=== PATIENT | female | born 1990 | race Caucasian/White ===

== ENCOUNTER 2024-07-23 07:49 | Outpatient (AMB) | payer OTHER, SELFPAY ==
--- NOTE | 2024-07-23 08:15 | MHC.PC.OV ---
Vital Signs 07/23/24 08:17 Height 5 ft 3.39 in Weight 121 lb 4 oz BMI 21.2 BP 110/68 Blood Pressure Location Lt brachial Position Sitting Pulse 85 Pulse Source Pulse Oximeter Temp 97 F Temp Source Temporal Artery Scan Pulse Oximetry (%) 98 Oxygen Delivery Method Room Air Intake Visit Reasons: Visit for her medication Intake Note: Patient is a new patient here to establish care for Migraine, Thyroid disease, Liver issues, Seasonal Allergies. Transferring care from Dr Bonnie Pearson ([facility]). Medical records have been requested and have not received. Development Disability Specialist Required: No Scrap Bunch Maker: Not Required per policy Accompanied by: Self / Same As Patient Allergies No Known Allergies Allergy (Verified 07/23/24 08:31) Medication List - Last Reconciled 07/23/24 by Maryam Bynum PA-C atogepant (Qulipta) 60 mg PO DAILY fluticasone propionate 50 mcg/actuation 2 sprays intranasal DAILY thiamine HCl (vitamin B1) 200 mg PO DAILY ubrogepant (Ubrelvy) 100 mg PO DAILY PRN Tobacco use date assessed: 07/23/24 Dental Screening Dental Screen Date: 07/23/24 Did you have a dental visit in the last 12 months?: Yes Did you have a dental problem in the last 6 months where you did not have access to dental care?: No Was dental information given to patient?: Patient has dentist HPI Visit for her medication HPI Details 34-year-old female coming to the office for the 1st time. She presents with a persistent breast lump, initially noticed in early this year following a pimple-like lesion resolution. The lump is non-painful, with no associated nipple discharge or skin rash. She has chronic migraines and reports needing prescription management, noting problems obtaining Ubrelvy due to issues with insurance and dosage prescriptions. 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 Recent steps to manage hepatic steatosis include starting thiamine, although follow-up diagnostics are pending. The patient addresses past mental health challenges, with anxiety being actively managed through therapy, though not depressive episodes as confirmed by a negative screening today. Planning is underway to address a lipoma surgically, with uncertainty due to recent insurance coverage issues. Additionally, acne and large pore problems possibly linked to prior control cessation are a concern, with a potential dermatology referral under consideration. 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 1. Little interest or pleasure in doing things: not at all 2. Feeling down, depressed, or hopeless: not at all 3. Trouble falling or staying asleep, or sleeping too much: not at all 4. Feeling tired or having little energy: not at all 5. Poor appetite or overeating: not at all 6. Feeling bad about yourself - or that you are a failure or have let yourself or your family down: not at all 7. Trouble concentrating on things, such as reading the newspaper or watching television: not at all 8. Moving or speaking so slowly that other people could have noticed. Or the opposite - being so fidgety or restless that you have been moving around a lot more than usual: not at all 9. Thoughts that you would be better off or of hurting yourself in some way: not at all Total score: 0 Depression Screening Interpretation: Negative Depression Screening Done: Yes Source: Developed by Drs. Juice Skaggs, Vanessa Campos, Fransico Fitzgerald and colleagues, with an educational coco from [employer]. Thrive Questionnaire Date Thrive assessed: 07/23/24 I am a: Patient What is your living situation today?: I have a steady place to live Within the past 12 months, did the food you bought not last and you didn't have the money to get more?: Never true Within the past 12 months, did you worry whether your food would run out before you got money to buy more?: Never true Do you have trouble paying for medicines?: No Do you have trouble getting transportation to medical appointments?: No Do you have trouble paying your heating and electricity bill?: No Do you have trouble taking care of your child, family member or friend?: No Do you have trouble with day-to-day activities such as bathing, preparing meals, shopping, managing finances, etc.?: No Are you currently unemployed and looking for a job?: No Are you interested in more education?: Yes Please select the resources that you would like help with: None Currently or been in a relationship where the following occur: I choose not to answer THRIVE Score: 0 AUDIT C Alcohol Use Questionnaire (AUDIT-C) 1. How often do you have a drink containing alcohol?: Never Total Score: 0 MARIO-7 AMB Questionnaire MARIO-7 Date MARIO - 7 assessed: 07/23/24 Feeling nervous, anxious, or on edge: 0 = Not at all Not being able to stop or control worryin = Not at all Worrying too much about different things: 0 = Not at all Trouble relaxin = Not at all Being so restless that it is hard to sit still: 0 = Not at all Becoming easily annoyed or irritable: 0 = Not at all Feeling afraid as if something awful might happen: 0 = Not at all Total MARIO-7 score (0-4 normal; 5-9 mild; 10-14 moderate; 15-21 severe): 0 Source: Developed by Drs. Juice Skaggs, Vanessa Campos, Fransico Fitzgerald and colleagues, with an educational coco from [employer]. MARIO-7 Assessment Billing MARIO-7 Assessment Tool: MARIO-7 Assessment 45475 Review of Systems Const Denies body aches, Denies chills, Denies fever(s), Reports headache(s) (hx of migraines) and Denies poor appetite Eyes Reports no additional complaints ENT Denies dizziness and Reports headache(s) (hx of migraines) Card Denies chest pain and Denies dyspnea Resp Denies cough and Denies dyspnea GI Denies nausea and Denies vomiting Reports no additional complaints Musc Reports no additional complaints and Denies abnormal gait Skin/Breast Reports system reviewed and no additional complaints, except as documented Neuro Denies abnormal gait, Denies dizziness and Reports headache(s) (hx of migraines) Psych Reports no additional complaints Physical exam (Primary Care) Depression Screening Interpretation: Negative Currently or been in a relationship where the following occur: I choose not to answer Const General: cooperative, healthy appearing, comfortable and no acute distress Orientation/consciousness: patient oriented x3 HENMT Head: Yes normocephalic Ears: hearing grossly normal bilaterally General nose exam: Normal external nose present Eyes General: appearance normal, both eyes and all related structures Conjunctivae: conjunctivae normal Neck Neck: Yes full ROM and Yes no lymphadenopathy Chest Chest/axillae images: 1. small, non-tender, soft, freely mobile mass Resp Effort & Inspection: normal respiratory effort Auscultation: clear to auscultation bilaterally, no crackles, no rales, no rhonchi and no wheezes Cardio Rate: regular rate Rhythm: regular rhythm Skin General skin exam: no rashes or lesions noted Neuro General: patient oriented x3 Gait exam (Neuro): Normal gait present Extrem General: Yes normal to inspection, Yes full ROM and No edema Shoulder/upper arm images: 1. Shoulder lipoma Psych Affect: normal affect Attitude: cooperative Insight: Good insight present (Psych) Judgement: Good judgement present (Psych) Coding Level of Care Code New Pt Level 4 (61538) Diagnoses Migraine G43.909 Hypothyroid E03.9 Fatty liver disease, nonalcoholic K76.0 Periodontal disease K05.6 Lipoma D17.9 Acne L70.9 Keratosis pilaris L85.8 Breast mass N63.0 Anxiety F41.9 Additional Codes MARIO-7 Assessment Billing - MARIO-7 Assessment Tool: MARIO-7 Assessment 89518 ([id number]) Assessment & Plan Assessment & Plan (1) Migraine: Code(s): G43.909 - Migraine, unspecified, not intractable, without status migrainosus Category: Medical Plan: Patient has a previously history of migraines currently using Qulipta daily and Ubrelvy as needed. Prescription sent for Ubrelvy. (2) Hypothyroid: Comment: was treated with iodine and was seeing improvement Code(s): E03.9 - Hypothyroidism, unspecified Category: Medical Plan: Patient reports her last PCP started her on iodine supplementation for possible Jina's thyroiditis. Blood work was ordered today for further evaluation. (3) Fatty liver disease, nonalcoholic: Code(s): K76.0 - Fatty (change of) liver, not elsewhere classified Category: Medical Plan: Patient previously diagnosed with fatty liver disease by her last PCP and was started on thiamine for management. Plan to obtain previous PCP records as well as updated blood work. (4) Periodontal disease: Code(s): K05.6 - Periodontal disease, unspecified Category: Medical Plan: Patient has a reported history of periodontal disease was started on vitamin-D by her dentist ordered for updated blood work (5) Lipoma: Comment: left shoulder prev MRI confirming Code(s): D17.9 - Benign lipomatous neoplasm, unspecified Category: Medical Plan: Patient has a lipoma of the left shoulder she has had MRIs in the past verifying the mass. She was being evaluated by [facility] however due to insurance had to switch to [facility] and has an evaluation tomorrow. (6) Acne: Code(s): L70.9 - Acne, unspecified Category: Medical Plan: Patient having open and closed comedones of the back recommend the use of Panoxyl body wash or other acne body wash. Referral was also placed to Dermatology at patient request (7) Keratosis pilaris: Code(s): L85.8 - Other specified epidermal thickening Category: Medical Plan: Patient previously diagnosed with keratosis pilaris by her last PCP. For this concern I recommend the use of 40% urea cream and referral was also placed to Dermatology (8) Breast mass: Code(s): N63.0 - Unspecified lump in unspecified breast Category: Medical Plan: Patient having very small breast mass in the 9 o'clock position on the border of the right areola. Plan to obtain ultrasound and mammogram for further evaluation. (9) Anxiety: Code(s): F41.9 - Anxiety disorder, unspecified Category: Medical Plan: Patient currently following with a counselor by weekly advised this beneficial. Declines medical management at this time Plan I prescribed Ubrelvy for migraine management, resolving the insurance issue. The breast lump, likely cystic, prompted orders for an ultrasound and mammogram. Jina's Thyroiditis will be monitored with upcoming thyroid function tests. Hepatic steatosis requires a metabolic panel. The patient will seek a surgical opinion on the shoulder lipoma, and a senior electrical estimator will evaluate the skin concerns. Vitamin support continues for periodontal health, with follow-up in three months to review blood work. This note was constructed using voice recognition software. While every effort has been made to ensure accuracy and foreclosure field inspector, still areas may have been included sometimes these areas may affect the content or meeting of the given symptoms. Total time spent caring for the patient today was 30 minutes. This includes time spent before the visit reviewing the chart, time spent during the visit, and time spent after the visit and documentation. Patient was informed and verbally consented to the use of an ambient scribe for clinic note documentation during this visit. Orders: Orders Complete Blood Count Auto Diff Today G43.909 - Migraine, unspecified, not intractable, without status migrainosus, Z00.00 - Encounter for general adult medical examination without abnormal findings Comprehensive Met. Panel Today K76.0 - Fatty (change of) liver, not elsewhere classified, Z00.00 - Encounter for general adult medical examination without abnormal findings Vitamin B12 and Folate Today Z00.00 - Encounter for general adult medical examination without abnormal findings Vitamin D 25-OH Total Today Z00.00 - Encounter for general adult medical examination without abnormal findings Lipid Panel Today Z13.220 - Encounter for screening for lipoid disorders TSH reflex Free T4 Today E03.9 - Hypothyroidism, unspecified, Z00.00 - Encounter for general adult medical examination without abnormal findings Free T4 (Free Thyroxine) Today E03.9 - Hypothyroidism, unspecified, Z00.00 - Encounter for general adult medical examination without abnormal findings US breast RT limited Today N63.0 - Unspecified lump in unspecified breast MM tomosynthesis diagnostic RT Today N63.0 - Unspecified lump in unspecified breast Referrals Dermatology Referral L70.9 - Acne, unspecified, L85.8 - Other specified epidermal thickening Medications: New ubrogepant (Ubrelvy) 100 mg PO DAILY PRN 10 tabs 0RF migraine headache
[2024-07-23 08:17] VITALS: BP 110/68; PULSE 85; TEMP 36.1; O2SAT 98; BMI 21.2
== END 2024-07-23 08:59 | disposition home or self-care (01) ==
LOC: HO.HMCH 07:50
DX: G43.909 Migraine, unspecified, not intractable, without status migrainosus (principal); E03.9 Hypothyroidism, unspecified; K76.0 Fatty (change of) liver, not elsewhere classified; K05.6 Periodontal disease, unspecified; D17.9 Benign lipomatous neoplasm, unspecified; L70.9 Acne, unspecified; L85.8 Other specified epidermal thickening; N63.0 Unspecified lump in unspecified breast; F41.9 Anxiety disorder, unspecified

== ENCOUNTER → 2024-07-23 07:49 | Outpatient (BNVA) | payer OTHER, SELFPAY | DX: G43.909 Migraine, unspecified, not intractable, without status migrainosus (principal); E03.9 Hypothyroidism, unspecified; K76.0 Fatty (change of) liver, not elsewhere classified; K05.6 Periodontal disease, unspecified; D17.22 Benign lipomatous neoplasm of skin and subcutaneous tissue of left arm; L70.9 Acne, unspecified; L85.8 Other specified epidermal thickening; N63.15 Unspecified lump in the right breast, overlapping quadrants; F41.9 Anxiety disorder, unspecified | CPT/HCPCS: 96127 ==

== ENCOUNTER 2024-09-04 07:48 | Outpatient (REF) | payer OTHER, SELFPAY ==
--- NOTE | ~2024-09-04 | MM_ITS ---
EXAMINATION: MM DIAGNOSTIC DIGITAL BREAST TOMOSYNTHESIS, BILATERAL Limited right breast ultrasound. CLINICAL INFORMATION: Right breast palpable lump which she does not feel today. She had felt that back in April of this year. COMPARISON: Mammography: Comparison is made with relevant prior exams. TECHNIQUE: Digital breast mammography with tomosynthesis is performed in both the craniocaudal and mediolateral oblique views along with computer-aided detection (CAD). FINDINGS: The breasts are heterogeneously dense, which may obscure small masses (ACR BI-RADS breast composition Category c). There are no significant masses, abnormal calcifications, or other abnormalities. Targeted color Doppler ultrasound scanning in the area of the previously felt palpable lump scanning from 7-11 o'clock demonstrates normal fibronodular breast tissue. There is no sonographic abnormal findings. Results are provided to the patient at time of visit by the technologist. MM/MM tomosynthesis diagnostic BI IMPRESSION: No mammographic or sonographic abnormal findings to account for the patient's palpable lump. Recommend clinical evaluation and follow-up. ASSESSMENT: BI-RADS BI-RADS 1 - Negative RECOMMENDATION: 1 year F/U This patient's information was entered into a reminder system with a target due date for their next mammogram. Electronically signed by: Nallely Kaplan DO 09/04/2024 09:57 AM EDT
--- OUTSIDE RECORDS SUMMARY | 2024-09-04 07:51 | XMS_ITS | Patient Health Record ---
Author Organization [facility] Address [address] [place] [address] Care Team Providers Care Impregnation Operator Name Role Phone Demond Rooney Primary Care Provider Ronnie Rosario Unavailable [phone] Medications Medication SIG (Take, Route, Frequency, Duration) Notes Start Date End Date Status Doxycycline Hyclate 50 MG 1capsules Oral ly Once a day for 03/05/2013 Active Clindamycin Phosphate 1 % 1 swab to affe cted area Externally Once in morning for 11/02/2013 Active Tretinoin 0.05 % 1 application a stephanie-sized amount to face in the evening Externally Once a day for 03/05/2013 Active Cyclafem Activ e Social History Tobacco Use: Social History Observation Description Date Details (start date - stop date) Never Smoker NA - NA Smoking Question Answer Notes Status nonsmoker Problems Problem Type SNOMED Code ICD Code Onset Dates Problem Status W/U Status Risk Notes Problem Acne (39125589) Other acne (706.1) Active confirmed Plan Of Treatment No Information Insurance Providers Payer Name Payer Address Payer Phone Subscriber Number Group Number Insured Name Patient Relationship to Insured Coverage Start Date Coverage End Date DO NOT USE BCRI BlUE CHIP-DO NOT USE USE #44 BCBS [place]ILLO [phone] [id number] Selam Winchester Child - Insured has Financial Responsibility [address] [address] [phone] [id number] Ayala Winchester Self - patient is the insured Medical (General) History Medical History History ICD Code acne
== END 2024-09-04 07:49 | disposition home or self-care (01) ==
LOC: HO.MAMMO 07:48
DX: N63.15 Unspecified lump in the right breast, overlapping quadrants (principal)
CPT/HCPCS: 76642; 77062; 77066

== ENCOUNTER → 2024-09-04 08:00 | Outpatient (BNV) | payer OTHER, SELFPAY | PROVIDERS: Visit Provider Internal Medicine | DX: N63.10 Unspecified lump in the right breast, unspecified quadrant (principal) | CPT/HCPCS: 76642; 77062; 77066 ==

== ENCOUNTER 2024-10-17 06:31 | Outpatient (REF) | payer OTHER, SELFPAY ==
--- OUTSIDE RECORDS SUMMARY | 2024-10-17 06:33 | XMS_ITS | Patient Health Record ---
Author Organization [facility] Address [address] [place] [id number] Care Team Providers Care American History Professor Name Role Phone zMigration, Provider Unavailable Unavailable Reason For Referral No Information Medications Medication SIG (Take, Route, Frequency, Duration) Notes Start Date End Date Status CLEOCIN T 1% TOPICAL GEL *Please review for potential replacement for e-prescription and drug interaction check* Active CLEOCIN T 1% TOPICAL GEL *Please review for potential replacement for e-prescription and drug interaction check* Active CLEOCIN T 1% TOPICAL GEL *Please review for potential replacement for e-prescription and drug interaction check* Active Tri-Sprintec 0.18/0.215/0.25 MG-35 MCG 1 tab(s) orally once a day for 30 days Active -NO OTC MEDICATIONS . . *Please revi ew for potential replacement for e-prescription and drug interaction check* 08/27/2012 Active Clotrimazole-Betamet hasone 1-0.05 % 1 cody applied topically 2 times a day Active Retin-A 0.025 % 1 cody applied topically once a day (at bedtime) Active Clindamycin Phosphate 1 % 1 cody applied topically 2 times a day for acne Active Immunizations Vaccine Route Administration Date Status Comme nts PPD - Skin test; tuberculosis ID Intradermal 09/16/2010 Administered Pt came for raeding on 09/18/2010 negitive Tdap (Adacel) purchased IM Intramuscular 11/28/2012 Administered Social History Tobacco use (structured) Question Answer Notes Tobacco Use: non-smoker Section Notes: 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 [address] [place] [address] [phone] 05/20/2024 Provider zMigration Plan Of Treatment No Information Insurance Providers Payer Name Payer Address Payer Phone Subscriber Number Group Number Insured Name Patient Relationship to Insured Coverage Start Date Coverage End Date [facility] [employer] [address] [address] [place] [address] [phone] [id number] Ayala Winchester Self - patient is the insured Medical (General) History Medical History History ICD Code No significant past medical history PAP-11/2013-neg. Surgical History Surgery Date(Month/Year) Teeth extractions
--- OUTSIDE RECORDS SUMMARY | 2024-10-17 06:33 | XMS_ITS | Patient Health Record ---
Author Organization [facility] Address [address] [place] [address] Care Team Providers Care Plastic Fabricator Name Role Phone Demond Rooney Primary Care Provider Ronnie Rosario Unavailable [phone] Medications Medication SIG (Take, Route, Frequency, Duration) [...] Problem Status W/U Status Risk Notes Problem Other acne (706.1) Active confirmed Plan Of Treatment No Information Insurance Providers Payer Name Payer Address Payer Phone Subscriber Number Group Number Insured Name Patient Relationship to Insured Coverage Start Date Coverage End Date DO NOT USE BCRI BlUE CHIP-DO NOT USE USE #44 [place] [id number] Selam Winchester Child - Insured has Financial Responsibility [address] [address] [phone] [id number] Ayala Winchester Self - patient is the insured Medical (General) History Medical History History ICD Code acne
[2024-10-17 10:27] LABS: MANUAL DIFF FLAG NO
[2024-10-17 10:34] LABS: Hematocrit 43.5 % (37.0-47.0); Hemoglobin 14.7 g/dl (12.0-16.0); Imm Gran Abs Auto 0.01 X10*3/uL (0.00-0.03); Imm Gran Pct Auto 0.1 % (0.0-0.4); Lymphocytes Absolute Auto 2.7 X10*3/uL (1.2-4.9); Mean Corpuscular HGB Conc 33.8 g/dl (31.0-35.0); Mean Corpuscular Hemoglobin 29.9 pg (27.0-33.0); Mean Corpuscular Volume 88.4 fL (80.0-98.0); NRBC Abs Auto 0.000 X10*3/uL (0.0-0.012); NRBC Pct Auto 0.0 /100WBC (0.0-0.2); Platelet Count 271 X10*3/uL (160-400); Red Blood Count 4.92 X10*6/uL (4.20-5.50); White Blood Count 7.2 X10*3/uL (4.8-10.8)
[2024-10-17 10:53] LABS: Alanine Aminotransferase 20 U/L (0-31); Albumin Level 4.6 g/dL (3.5-5.0); Alkaline Phosphatase 73 U/L (39-117); Anion Gap 11 (12-20); Aspartate Amino Transferase 36 U/L (5-31); Blood Urea Nitrogen 27 mg/dL (9-16); Calcium 9.1 mg/dL (8.4-10.2); Carbon Dioxide 27 mmol/L (22-29); Chloride 105 mmol/L (96-108); Cholesterol 169 mg/dL (<200); Estimated Glomerular Filt Rate > 60; HDL Cholesterol 67 mg/dL (>40); Potassium 3.6 mmol/L (3.3-5.1); Sodium 139 mmol/L (135-145); Total Protein 7.4 g/dL (6.5-8.0); Triglycerides 45 mg/dL (<150)
[2024-10-17 11:21] LABS: Free T4 (Free Thyroxine) 0.90 ng/dL (0.71-1.85)
[2024-10-17 11:26] LABS: Folate 12.7 ng/mL (> or = 4.0); Vitamin B12 813 pg/mL (200-900)
== END 2024-10-17 06:32 | disposition home or self-care (01) ==
LOC: HO.HMGCLDS 06:31
DX: Z00.00 Encounter for general adult medical examination without abnormal findings (principal); Z13.220 Encounter for screening for lipoid disorders; G43.909 Migraine, unspecified, not intractable, without status migrainosus; E03.9 Hypothyroidism, unspecified; K76.0 Fatty (change of) liver, not elsewhere classified
CPT/HCPCS: 36415; 80053; 80061; 82306; 82607; 82746; 84439; 84443; 85025

== ENCOUNTER 2024-10-23 15:20 | Outpatient (AMB) | payer OTHER, SELFPAY ==
--- NOTE | 2024-10-23 15:23 | MHC.PC.OV ---
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: No Accompanied by: Self / Same As Patient Allergies No Known Allergies Allergy (Verified 10/23/24 15:48) Medication List - Last Reconciled 10/23/24 by Maryam Bynum PA-C atogepant (Qulipta) 60 mg PO DAILY fluticasone propionate 50 mcg/actuation 2 sprays intranasal DAILY thiamine HCl (vitamin B1) 200 mg PO DAILY ubrogepant (Ubrelvy) 100 mg PO DAILY PRN Tobacco use date assessed: 10/23/24 Dental Screening Dental Screen Date: 10/23/24 Did you have a dental visit in the last 12 months?: Yes Did you have a dental problem in the last 6 months where you did not have access to dental care?: No Was dental information given to patient?: Patient has dentist HPI pe HPI Details 34-year-old female with past medical history of migraine, hypothyroid, fatty liver disease, and anxiety last seen 07/2024 coming in for annual exam. In review of the notes, patient had a palpable right breast mass no sonographic or mammographic evidence of a lump advised to follow up in 1 year. Presenting with migraine management issues. The patient has been experiencing migraines, with the most recent severe episode occurring within the last month. She reports that migraines are more frequent around her menstrual period. She has been using Qulipta and Ubrelvy, but insurance issues have led to inconsistent medication access. Dermatitis diagnosed by a corporate travel expert, the patient is using ketoconazole shampoo as a topical treatment. The condition appears to fluctuate throughout the day, potentially worsening with sweat or exercise. Previously diagnosed, the patient is managing the condition with lifestyle modifications. Recent blood work showed one liver enzyme slightly elevated, but otherwise normal liver function. 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 1. Little interest or pleasure in doing things: not at all 2. Feeling down, depressed, or hopeless: not at all 3. Trouble falling or staying asleep, or sleeping too much: not at all 4. Feeling tired or having little energy: not at all 5. Poor appetite or overeating: not at all 6. Feeling bad about yourself - or that you are a failure or have let yourself or your family down: not at all 7. Trouble concentrating on things, such as reading the newspaper or watching television: not at all 8. Moving or speaking so slowly that other people could have noticed. Or the opposite - being so fidgety or restless that you have been moving around a lot more than usual: not at all 9. Thoughts that you would be better off or of hurting yourself in some way: not at all Total score: 0 Depression Screening Interpretation: Negative Depression Screening Done: Yes Source: Developed by Drs. Juice Skaggs, Vanessa Campos, Fransico Fitzgerald and colleagues, with an educational coco from [employer]. Thrive Questionnaire Date Thrive assessed: 10/23/24 I am a: Patient What is your living situation today?: I have a steady place to live Within the past 12 months, did the food you bought not last and you didn't have the money to get more?: Never true Within the past 12 months, did you worry whether your food would run out before you got money to buy more?: Never true Do you have trouble paying for medicines?: No Do you have trouble getting transportation to medical appointments?: No Do you have trouble paying your heating and electricity bill?: No Do you have trouble taking care of your child, family member or friend?: No Do you have trouble with day-to-day activities such as bathing, preparing meals, shopping, managing finances, etc.?: No Are you currently unemployed and looking for a job?: No Are you interested in more education?: Yes Please select the resources that you would like help with: None Currently or been in a relationship where the following occur: I choose not to answer THRIVE Score: 0 AUDIT C Alcohol Use Questionnaire (AUDIT-C) 3. How often do you have six or more drinks on one occasion?: Never Total Score: 0 MARIO-7 AMB Questionnaire MARIO-7 Date MARIO - 7 assessed: 10/23/24 Feeling nervous, anxious, or on edge: 0 = Not at all Not being able to stop or control worryin = Not at all Worrying too much about different things: 0 = Not at all Trouble relaxin = Not at all Being so restless that it is hard to sit still: 0 = Not at all Becoming easily annoyed or irritable: 0 = Not at all Feeling afraid as if something awful might happen: 0 = Not at all Total MARIO-7 score (0-4 normal; 5-9 mild; 10-14 moderate; 15-21 severe): 0 Source: Developed by Drs. Juice Skaggs, Vanessa Campos, Fransico Fitzgerald and colleagues, with an educational coco from [employer]. MARIO-7 Assessment Billing MARIO-7 Assessment Tool: MARIO-7 Assessment 35323 Review of Systems Const Denies body aches, Denies fatigue, Denies fever(s), Denies frequent falls, Reports headache(s) (migraine without medication ) and Denies weakness Eyes Reports no additional complaints and Denies change in vision ENT Denies dysphagia, Denies dizziness, Denies facial pain, Reports headache(s) (migraine without medication ), Denies nasal congestion and Denies odynophagia Card Denies chest pain, Denies syncope, Denies irregular heart rhythm, Denies leg edema, Denies lightheadedness and Denies dyspnea Resp Denies cough and Denies dyspnea GI Denies abdominal pain, Reports constipation, Denies dysphagia, Denies dyspepsia, Denies diarrhea, Reports nausea (w/ migraine), Denies odynophagia and Denies vomiting Denies urinary frequency, Denies dysuria, Denies urinary hesitancy and Denies urinary urgency Musc Denies back pain and Denies myalgias Skin/Breast Reports system reviewed and no additional complaints, except as documented Neuro Denies dizziness, Denies syncope, Denies frequent falls, Reports headache(s) (migraine without medication ) and Denies weakness Psych Reports no additional complaints Endo Denies fatigue Physical exam (Primary Care) Vital Signs: Last Vital Signs Pulse 77 10/23/24 15:25 BP 104/72 10/23/24 15:25 Pulse Ox 100 10/23/24 15:25 Oxygen Delivery Method Room Air 10/23/24 15:25 BMI result Body Mass Index 20.9 Tobacco/Smoking Status: Tobacco use Status Tobacco use date assessed 10/23/24 10/23/24 15:27 Patient Tobacco Use Status Never used Tobacco 10/23/24 15:27 e-Cigarette/Vaping Use Never Used 10/23/24 15:27 PHQ-9: PHQ-9 Score PHQ-9: Total score 0 10/23/24 15:38 Depression Screening Interpretation: Negative Thrive Assessment: Date of Thrive Assessment Date Thrive assessed 10/23/24 10/23/24 15:27 Currently or been in a relationship where the following occur: I choose not to answer Const General: cooperative, healthy appearing, comfortable and no acute distress Orientation/consciousness: patient oriented x3 HENMT Head: Yes normocephalic Ears: hearing grossly normal bilaterally, external ears normal, TM's normal bilaterally and EAC's normal General nose exam: Normal external nose present Face and sinus: Yes normal facial exam and Yes sinuses nontender Mouth: Normal oral and palatal mucosa present and tongue normal Throat: Yes posterior oropharynx normal Eyes General: appearance normal, both eyes and all related structures Conjunctivae: conjunctivae normal Pupils: Equal, round and reactive pupils present EOM: EOMs intact bilaterally and No Nystagmus present Neck Neck: Yes normal visual inspection, Yes full ROM and Yes no lymphadenopathy Chest Chest palpation & inspection: normal inspection of the chest Resp Effort & Inspection: normal respiratory effort Auscultation: clear to auscultation bilaterally, no crackles, no rales, no rhonchi, no wheezes and breath sounds present Cardio Rate: regular rate Rhythm: regular rhythm Peripheral pulses: radial pulses present and dorsalis pedis present GI Inspection: Yes normal to inspection and No Abdominal wall edema Palpation (GI): Soft to palpation, not firm and nontender Auscultation: normal bowel sounds Rectal Exam - Female: deferred General: Yes no CVA tenderness Back/Spine/Pelvis Back: no CVA tenderness Skin General skin exam: no rashes or lesions noted Neuro General: patient oriented x3 Cranial nerves: Yes Equal, round and reactive pupils present, Yes Midline tongue present, Yes Ability to bilaterally elevate shoulders present and No Nystagmus present Gait exam (Neuro): Normal gait present Extrem General: Yes normal to inspection, Yes full ROM, No no pedal edema and No edema Psych Speech and movement: Normal speech and movement present Affect: normal affect Insight: Good insight present (Psych) Judgement: Good judgement present (Psych) Coding Level of Care Code Est Pt Prev Care 18-39y(31919) Diagnoses Annual physical exam Z00.00 Migraine G43.909 Hypothyroid E03.9 Fatty liver disease, nonalcoholic K76.0 Lipoma D17.9 Breast mass N63.0 Anxiety F41.9 Allergic rhinitis J30.9 Additional Codes MARIO-7 Assessment Billing - MARIO-7 Assessment Tool: MARIO-7 Assessment 63745 ([id number]) Assessment & Plan Assessment & Plan (1) Annual physical exam: Code(s): Z00.00 - Encounter for general adult medical examination without abnormal findings Category: Medical Plan: Patient is up-to-date on all recommended routine screenings and vaccinations for her age. Blood work is up-to-date and has been reviewed with the patient today. Healthy diet and regular exercise is encouraged. (2) Migraine: Code(s): G43.909 - Migraine, unspecified, not intractable, without status migrainosus Category: Medical Plan: Patient has a previously history of migraines currently using Qulipta daily and Ubrelvy as needed. Prescription sent for Ubrelvy. Insurance would not cover these medications and referral was placed to Neurology. She has an appointment in December. 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 Last thyroid levels normal (4) Fatty liver disease, nonalcoholic: Code(s): K76.0 - Fatty (change of) liver, not elsewhere classified Category: Medical Plan: Patient previously diagnosed with fatty liver disease by her last PCP and was started on thiamine for management. Last LFTs very mildly elevated continue to monitor (5) Lipoma: Comment: left shoulder prev MRI confirming Code(s): D17.9 - Benign lipomatous neoplasm, unspecified Category: Medical Plan: Recently removed and doing well post-op. (6) Breast mass: Code(s): N63.0 - Unspecified lump in unspecified breast Category: Medical Plan: [facility] and sonography negative repeat in 1 year. (7) Anxiety: Code(s): F41.9 - Anxiety disorder, unspecified Category: Medical Plan: Patient currently following with a counselor by weekly advised this beneficial. Declines medical management at this time (8) Allergic rhinitis: Code(s): J30.9 - Allergic rhinitis, unspecified Category: Medical Plan: Referral was placed to ENT at patient request today. continue with oral allergy medication. Plan The plan for managing the patient's migraines includes submitting new prescriptions for Qulipta and Ubrelvy, with a focus on obtaining insurance approval. If issues persist, a referral to neurology is recommended for specialized care. The patient is advised to monitor migraine frequency and severity, particularly around her menstrual cycle, and to report any changes. Management of fatty liver disease involves continued lifestyle modifications, including diet and exercise. Regular monitoring of liver function tests is advised to track any changes. The patient is informed that no specific medication is required at this time. Anxiety management continues with counseling sessions. The patient is encouraged to discuss any concerns or changes in symptoms with her counselor. The patient is instructed to discontinue Flonase due to suspected allergic reactions and to monitor for any residual symptoms. Alternative allergy management strategies may be considered if needed. This note was constructed using voice recognition software. While every effort has been made to ensure accuracy and video camera operator, still areas may have been included sometimes these areas may affect the content or meeting of the given symptoms. Total time spent caring for the patient today was 30 minutes. This includes time spent before the visit reviewing the chart, time spent during the visit, and time spent after the visit and documentation. Patient was informed and verbally consented to the use of an ambient scribe for clinic note documentation during this visit. Orders: Referrals Ear/Nose/Throat Referral J30.9 - Allergic rhinitis, unspecified, Z91.09 - Other allergy status, other than to drugs and biological substances CARDBOARD INSERTER Referral Z12.4 - Encounter for screening for malignant neoplasm of cervix Medications: New atogepant (Qulipta) 60 mg PO DAILY 90 tabs 0RF ubrogepant (Ubrelvy) 100 mg PO DAILY PRN 30 tabs 0RF migraine Discontinued ubrogepant (Ubrelvy) Discontinued Reason: Patient no longer taking 100 mg PO DAILY PRN 10 tabs 0RF migraine headache atogepant (Qulipta) Discontinued Reason: Patient no longer taking 60 mg PO DAILY 30 tabs 0RF
[2024-10-23 15:25] VITALS: BP 104/72; PULSE 77; O2SAT 100; BMI 20.9
--- OUTSIDE RECORDS SUMMARY | 2024-10-23 16:15 | XMS_ITS | Clinical Summary ---
Author Organization [facility] Address [address] [facility] [address] [place] [phone] Phone Care Team Providers Care Checker Dump Grounds Name Role Phone Bonnie Pearson NP Primary Care Provider + Allergies No known active allergies Medications QULIPTA 60 mg tablet 01/25/2024 Active cetirizine (ZYRTEC) 10 MG tablet 01/20/2024 Active thiamine (VITAMIN B-1) 100 MG tablet 03/04/2024 Active UBRELVY 100 mg tablet 02/08/2024 Active selenium 200 mcg capsule Take 200 mcg by mouth daily. Active cholecalciferol (VITAMIN D3) 25 MCG (1,000 unit) tablet Take 1,000 Units by mouth daily. Active therapeutic multivitamin tablet Take 1 tablet by mouth daily. Active magnesium 250 mg Tab Take by mouth. Active iodine 150 mcg Tab Take by mouth. Active Medication-Free Text Skin aid Active Bacillus coagulans-inulin 1 billion-250 cell-mg Cap Take 250 mg by mouth daily. Active Active Problems Problem Noted Date Diagnosed Date Anxiety 04/10/2024 Depression 04/10/2024 Migraines 04/10/2024 Social History Tobacco Use Types Packs/Day Years Used Date Smoking Tobacco: Never Smokeless Tobacco: Never Tobacco Cessation:Counseling Given: Not Answered Education Answer Date Recorded Are you interested in more education? Not on jose e 02/29/2024 Are you concerned about learning? Not on file 02/29/2024 No 02/29/2024 No 02/29/2024 Digital Access Answer Date Recorded No 02/29/2024 No 02/29/2024 Reliable internet access at home? Not on file 02/29/2024 Device with a working camera? Not on file Comments Unknown Sex and Gender Information Value Date Recorded Sex Assigned at Not on file Legal Sex Female 11:20 AM EDT Gender Identity Not on file Sexual Orientation Not on file Last Filed Vital Signs Vital Sign Reading Time Taken Comments Blood Pressure 110/66 04/10/2024 10:14 AM EST Pulse 80 04/10/2024 10:14 AM EST Temperature 36.6 C (97.8 F) 04/10/2024 10:14 AM EST Respiratory Rate - - Oxygen Saturation 98% 04/10/2024 10:14 AM EST Inhaled Oxygen Concentration - - Weight 55 kg (121 lb 3.2 oz) 04/10/2024 10:14 AM EST Height - - Body Mass Index - - Plan of Treatment Health Maintenance Due Date Last Done Comments Adult Td,Tdap Booster 1988 DEPRESSION SCREENING 2000 HEPATITIS C SCREENING 2006 HIV ONE-TIME SCREENING (18-6 5 YEARS) 2006 PAP SMEAR 2009 COVID-19 VACCINE (2023-2 5 season) 2023 SMOKING STATUS SCREENING (On ce After 26 Yrs) Completed 04/10/2024 HEPATITIS A VACCINES Aged Out No long er eligible based on patient's age to complete this topic HIB VACCINES Aged Out No longer eligi ble based on patient's age to complete this topic MENINGOCOCCAL VACCINES (ACWY) Aged Out No longer eligible based on patient's age to complete this topic MENINGOCOCCAL VACCINES (B) Aged Out N o longer eligible based on patient's age to complete this topic PNEUMOCOCCAL VACCINES (0-49 years) Aged Out No longer eligible based on patient's age to complete this topic Medical Devices Not on file Insurance [address] [place] [id number] [facility] [address] [place] [address] [facility] [address] [place] [address] [facility] [address] [place] [address] [facility] [address] [facility] [place] [place] [facility] [address] [place] [id number] [place] [address] Care Teams Checker Dump Grounds Relationship Specialty Start Date End Date Bonnie Pearson NP [address] [place] [id number] PCP - General Nurse Practitioner 04/10/24 Additional Source Comments The information contained in this document represents components of the legal health record. It is not the complete legal health record.[facility]
--- OUTSIDE RECORDS SUMMARY | 2024-10-23 16:15 | XMS_ITS ---
Author Name [facility] Organization Unknown Care Team Organization Name Specialty Phone Email Start Date End Da te [facility] Indira Robles Primary Care 02/09/2022 4
--- OUTSIDE RECORDS SUMMARY | 2024-10-23 16:15 | XMS_ITS | Patient Health Record ---
Author Organization [facility] 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 [address] [place] [phone] 05/20/2024 Provider zMigration Plan Of Treatment No Information Insurance Providers Payer Name Payer Address Payer Phone Subscriber Number Group Number Insured Name Patient Relationship to Insured Coverage Start Date Coverage End Date [facility] [employer] [address] [address] [place] [address] [phone] [id number] Ayala Winchester Self - patient is the insured Medical (General) History Medical History History ICD Code No significant past medical history PAP-11/2013-neg. Surgical History Surgery Date(Month/Year) Teeth extractions
--- OUTSIDE RECORDS SUMMARY | 2024-10-23 16:15 | XMS_ITS | Patient Health Record ---
Author Organization [facility] Address [address] [facility] [address] [place] [address] Care Team Providers Care At Risk Specialist Name Role Phone Demond Rooney Primary Care Provider Ronnie Rosario Unavailable [phone] Medications Medication SIG (Take, Route, Frequency, Duration) [...] BlUE CHIP-DO NOT USE USE #44 [place] BRITT [id number] Selam Winchester Child - Insured has Financial Responsibility [address] [address] [phone] [id number] Ayala Winchester Self - patient is the insured Medical (General) History Medical History History ICD Code acne
== END 2024-10-23 16:10 | disposition home or self-care (01) ==
LOC: HO.HMCH 15:21
DX: Z00.00 Encounter for general adult medical examination without abnormal findings (principal); G43.909 Migraine, unspecified, not intractable, without status migrainosus; E03.9 Hypothyroidism, unspecified; K76.0 Fatty (change of) liver, not elsewhere classified; D17.9 Benign lipomatous neoplasm, unspecified; N63.0 Unspecified lump in unspecified breast; F41.9 Anxiety disorder, unspecified; J30.9 Allergic rhinitis, unspecified

== ENCOUNTER → 2024-10-23 15:20 | Outpatient (BNVA) | payer OTHER, SELFPAY | DX: Z00.00 Encounter for general adult medical examination without abnormal findings (principal); G43.909 Migraine, unspecified, not intractable, without status migrainosus; E03.9 Hypothyroidism, unspecified; F41.9 Anxiety disorder, unspecified; K76.0 Fatty (change of) liver, not elsewhere classified; D17.9 Benign lipomatous neoplasm, unspecified; N63.0 Unspecified lump in unspecified breast; J30.9 Allergic rhinitis, unspecified | CPT/HCPCS: 96127 ==

== ENCOUNTER 2024-11-14 14:48 | Outpatient (AMB) | payer OTHER, SELFPAY ==
[2024-11-14 14:54] VITALS: BP 100/60; PULSE 79; O2SAT 98; BMI 21.1
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
--- OUTSIDE RECORDS SUMMARY | 2024-11-14 14:54 | XMS_ITS | Patient Health Record ---
Author Organization [facility] Address [address] [facility] [address] [place] [address] Care Team Providers Care Buttonhole Maker Name Role Phone Demond Rooney Primary Care Provider Ronnie Rosario Unavailable [phone] Medications Medication SIG (Take, Route, Frequency, Duration) Notes Start Date End Date Status Doxycycline Hyclate 50 MG 1capsules Oral ly Once a day; Duration: 03/05/2013 Active Clindamycin Phosphate 1 % 1 swab to affe cted area Externally Once in morning; Duration: 11/02/2013 Active Tretinoin 0.05 % 1 application a stephanie-sized amount to face in the evening Externally Once a day; Duration: 03/05/2013 Active Cyclafem Activ e Social History [...] NOT USE USE #44 BCBS [place]ANE TRUJILLO [phone] [id number] Selam Winchester Child - Insured has Financial Responsibility [address] [address] [phone] [id number] Ayala Winchester Self - patient is the insured Medical (General) History Medical History History ICD Code acne
--- OUTSIDE RECORDS SUMMARY | 2024-11-14 14:54 | XMS_ITS | Clinical Summary ---
Author Organization [facility] Address [address] [employer] [facility] [address] [place] [phone] Phone Care Team Providers Care Clinical Assistant Name Role Phone Bonnie Pearson NP Primary [...] Medical Devices Not on file Insurance [address] [place] [id number] [facility] [address] [place] [address] [facility] [address] [place] [address] [facility] [address] [place] [address] [facility] [address] [facility] [place] [place] [facility] [address] [place] [id number] [place] [address] Care Teams Clinical Assistant Relationship Specialty Start Date End Date Bonnie Pearson NP [address] [place] [phone] PCP - General Nurse Practitioner 04/10/24 Additional Source Comments The information contained in this document represents components of the legal health record. It is not the complete legal health record.[facility]
--- OUTSIDE RECORDS SUMMARY | 2024-11-14 14:54 | XMS_ITS | Patient Health Record ---
Author Organization [facility] Address [address] [place] [address] [phone] Care Team Providers Care Utility Sales And Service Manager Name Role Phone zMigration, Provider Unavailable Unavailable [...] MG-35 MCG 1 tab(s) orally once a day; Duration: 30 days Active -NO OTC MEDICATIONS . 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 [address] [place] [address] [phone] 05/20/2024 Provider zMigration Plan Of Treatment No Information Insurance Providers Payer Name Payer Address Payer Phone Subscriber Number Group Number Insured Name Patient Relationship to Insured Coverage Start Date Coverage End Date [facility] Carlo/Marla itJenniferre [address] [address] [place] [address] [id number] Ayala Winchester Self - patient is the insured Medical (General) History Medical History History ICD Code No significant past medical history PAP-11/2013-neg. Surgical History Surgery Date(Month/Year) Teeth extractions
== END 2024-11-23 17:48 | disposition home or self-care (01) ==
LOC: HO.HSMS 14:48
PROVIDERS: Visit Provider Nurse Practitioner Family
DX: G43.009 Migraine without aura, not intractable, without status migrainosus (principal); R25.9 Unspecified abnormal involuntary movements
CPT/HCPCS: 99205

== ENCOUNTER 2024-12-11 09:41 | Outpatient (REF) | payer OTHER, SELFPAY ==
[2024-12-11 14:37] LABS: Chlamydia pneumoniae PCR Not Detected (Not Detect.); Coronavirus 229E PCR Not Detected (Not Detect.); Coronavirus HKU1 PCR Not Detected (Not Detect.); Coronavirus NL63 PCR Not Detected (Not Detect.); Coronavirus OC43 PCR Not Detected (Not Detect.); RSV PCR Not Detected (Not Detect.); Rhino/Enterovirus PCR Not Detected (Not Detect.)
[2024-12-11 14:44] LABS: Influenza A H1 PCR Not Detected (Not Detect.); Influenza A H1-2009 PCR Not Detected (Not Detect.); Influenza A H3 PCR Not Detected (Not Detect.); SARS-CoV-2 PCR Not Detected (Not Detect.)
== END 2024-12-11 09:42 | disposition home or self-care (01) ==
LOC: HO.LNP 09:41
PROVIDERS: Visit Provider Physician Assistant Medical
DX: R05.1 Acute cough (principal)
CPT/HCPCS: 87633

== ENCOUNTER 2024-12-11 09:41 | Outpatient (AMB) | payer OTHER, SELFPAY ==
[2024-12-11 09:51] VITALS: BP 106/72; PULSE 85; TEMP 36.7; O2SAT 98; BMI 21.5
--- NOTE | 2024-12-11 09:51 | MHC.OFFWIV ---
Intake Vital Signs 12/11/24 09:51 Height 5 ft 3 in Weight 121 lb 4 oz BMI 21.5 BP 106/72 Blood Pressure Location Lt brachial Position Sitting Pulse 85 Pulse Source Pulse Oximeter Temp 98.0 F Temp Source Oral Pulse Oximetry (%) 98 Oxygen Delivery Method Room Air Intake Visit Reasons: ep cough for two weeks Intake Note: Pt presents to the office today for c/o a cough and chest congestion x2 weeks. Pt has been taking mucinex and benzonatate with no relief. Patient Tobacco Use Status: Never used Tobacco Allergies No Known Allergies Allergy (Verified 12/11/24 09:55) HPI HPI Comments History of Present Illness Details History - The patient is a 34-year-old female presenting with a persistent cough. - The cough has been ongoing for almost two weeks and has not improved with [id number] medications. - The patient reports the cough is mostly dry, occasionally sounding wet, with no productive sputum. - There is no history of fever, but the patient experiences fatigue and occasional postnasal drip. 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 - The patient has not experienced significant congestion or runny nose, and there is no difficulty breathing through the nose. 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 - She denies congestion, runny nose, sore throat, CP, SOB, abd pain, n/v/d. - She does not smoke. Physical Exam General: Cooperative, healthy appearing, comfortable and no acute distress Orientation/consciousness: Patient oriented x3 Limitations: No limitations Head: Normal to inspection Ears: Hearing grossly normal bilaterally, external ears normal and TM's normal bilaterally Nose: Normal external nose present, normal nares present, and no nasal discharge present. Face and sinus: Sinuses nontender to palpation. Mouth: Normal oral and palatal mucosa present and moist mucous membranes noted. Throat: Tonsils normal. Uvula is midline. Posterior oropharynx with erythema and no exudates. Eyes: Appearance normal, both eyes and all related structures Neck: Normal visual inspection, full ROM. No lymphadenopathy noted. Respiratory: Clear to auscultation bilaterally. Normal respiratory effort, able to speak in complete sentences. No respiratory distress, not tachypneic, no tripod positioning and no use of accessory muscles. Cardiovascular: Regular rate and rhythm. 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 Cognitive needs: No Hearing needs: No Vision needs: Yes (Glasses/Contacts) Review of Systems Const All systems reviewed & are unremarkable except as noted in HPI and below Physical Exam Vital Signs: Last Vital Signs Temp 98.0 F 12/11/24 09:51 Pulse 85 12/11/24 09:51 BP 106/72 12/11/24 09:51 Pulse Ox 98 12/11/24 09:51 Oxygen Delivery Method Room Air 12/11/24 09:51 BMI result Body Mass Index 21.5 Assessment & Plan Assessment & Plan (1) Cough: Code(s): R05.9 - Cough, unspecified Qualifiers: Cough type: acute Qualified Code(s): R05.1 - Acute cough Plan Most likely URI vs covid vs flu vs RSV vs bronchitis plan - The patient will be tested for COVID-19 to rule out viral infection. - Prescriptions include an inhaler, cough medicine (benzonatate), and prednisone to manage symptoms. - will call her with the results - follow up with PCP Orders: Orders Resp Pathogen Panel - [facility] Today J06.9 - Acute upper respiratory infection, unspecified Medications: New benzonatate 100 mg PO bid-tid PRN 21 caps 0RF Cough 7 days albuterol sulfate 90 mcg/actuation 2 puffs inhalation Q6H PRN 8.5 grams 0RF shortness of breath or wheezing or cough prednisone 40 mg (2 x 20 mg) PO DAILY 10 tabs 0RF 5 days Coding Level of Care Code Est Pt Level 3 (48493) Diagnoses Acute cough R05.1 Cough type: acute
--- OUTSIDE RECORDS SUMMARY | 2024-12-11 11:20 | XMS_ITS | Patient Health Record ---
Author Organization [facility] Address [address] [facility] [address] [place] [address] Care Team Providers Care Salesforce Developer Name Role Phone Demond Rooney Primary Care Provider Ronnie Rosario Unavailable [phone] Medications Medication SIG (Take, Route, Frequency, Duration) [...] Status W/U Status Risk Notes Problem Acne (61881933) Other acne (706.1) Active confirmed Plan Of Treatment No Information Insurance Providers Payer Name Payer Address Payer Phone Subscriber Number Group Number Insured Name Patient Relationship to Insured Coverage Start Date Coverage End Date DO NOT USE BCRI BlUE CHIP-DO NOT USE USE #44 BCBS SHANE TRUJILLO [phone] [id number] Selam Winchester Child - Insured has Financial Responsibility [address] [address] [phone] [id number] Ayala Winchester Self - patient is the insured Medical (General) History Medical History History ICD Code acne
--- OUTSIDE RECORDS SUMMARY | 2024-12-11 11:21 | XMS_ITS | Clinical Summary ---
Author Organization [facility] Address [address] [facility] [address] [place] [address] Phone Care Team Providers Care Combination Welder Name Role Phone Bonnie Pearson NP Primary [...] (18-6 5 YEARS) 2006 PAP SMEAR 2009 INFLUENZA VACCINE (#1) 2024 COVID-19 VACCINE (2023-2 5 season) 2024 SMOKING STATUS SCREENING (On ce After 26 [...] topic Medical Devices Not on file Insurance [facility] [address] [place] [address] [facility] [address] [place] [address] [facility] [address] [place] [address] [facility] [address] [place] [address] [facility] [address] [place] [facility] [address] [place] [address] Care Teams Combination Welder Relationship Specialty Start Date End Date Bonnie Pearson NP [address] [place] [address] PCP - General Nurse Practitioner 04/10/24 Additional Source Comments The information contained in this document represents components of the legal health record. It is not the complete legal health record.[facility]
--- OUTSIDE RECORDS SUMMARY | 2024-12-11 11:21 | XMS_ITS | Patient Health Record ---
Author Organization [facility] 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 [address] [place] [phone] 05/20/2024 Provider zMigration Plan Of Treatment No Information Insurance Providers Payer Name Payer Address Payer Phone Subscriber Number Group Number Insured Name Patient Relationship to Insured Coverage Start Date Coverage End Date [facility] Carlo/Marla itJenniferre [address] [address] [place] [address] [id number] Ayala Winchester Self - patient is the insured Medical (General) History Medical History History ICD Code No significant past medical history PAP-11/2013-neg. Surgical History Surgery Date(Month/Year) Teeth extractions
== END 2024-12-11 11:27 | disposition home or self-care (01) ==
PROVIDERS: Visit Provider Physician Assistant Medical
DX: R05.1 Acute cough (principal)

== ENCOUNTER 2024-12-15 12:03 | Outpatient (REF) | payer OTHER, SELFPAY ==
--- NOTE | ~2024-12-15 | XR_ITS ---
EXAMINATION: XR CERVICAL SPINE FLEXION EXTENSION HISTORY: M54.2 - Cervicalgia COMPARISON: There are no prior studies available for comparison. FINDINGS: AP, lateral, and open-mouth odontoid views of the cervical spine are submitted. Flexion and extension lateral views were also obtained. Osseous mineralization is normal. Seven cervical vertebral bodies are identified maintaining normal height and alignment without evidence of fracture or subluxation. The intervertebral disc spaces are preserved. The neural foramina patent bilaterally. There is no abnormal motion with flexion or extension. The odontoid and lateral masses of C1 are intact. There is no prevertebral soft tissue swelling. XR/XR cervical spine w flex/ext IMPRESSION: Unremarkable examination of the cervical spine. No abnormal motion with flexion or extension. Electronically signed by: Juice Quick MD 12/17/2024 08:16 AM EDT
--- OUTSIDE RECORDS SUMMARY | 2024-12-15 12:07 | XMS_ITS | Patient Health Record ---
Author Organization [facility]. 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 [address] [place] [phone] 05/20/2024 Provider zMigration Plan Of Treatment No Information Insurance Providers Payer Name Payer Address Payer Phone Subscriber Number Group Number Insured Name Patient Relationship to Insured Coverage Start Date Coverage End Date [facility] Carlo/R [employer]eCare [address] [address] [place] [address] [id number] Ayala Winchester Self - patient is the insured Medical (General) History Medical History History ICD Code No significant past medical history PAP-11/2013-neg. Surgical History Surgery Date(Month/Year) Teeth extractions
--- OUTSIDE RECORDS SUMMARY | 2024-12-15 12:07 | XMS_ITS | Patient Health Record ---
Author Organization [facility] Address [address] [facility] [address] [place] [address] Care Team Providers Care Spot Facer Name Role Phone Demond Rooney Primary Care Provider Ronnie Rosario Unavailable [phone] Medications Medication SIG (Take, Route, Frequency, Duration) [...] Status W/U Status Risk Notes Problem Acne ([id number]) Other acne (706.1) Active confirmed Plan Of Treatment No Information Insurance Providers Payer Name Payer Address Payer Phone Subscriber Number Group Number Insured Name Patient Relationship to Insured Coverage Start Date Coverage End Date DO NOT USE BCRI BlUE CHIP-DO NOT USE USE #44 BCBS SHANE TRUJILLO [id number] Selam Winchester Child - Insured has Financial Responsibility [address] [address] [phone] [id number] Ayala Winchester Self - patient is the insured Medical (General) History Medical History History ICD Code acne
--- OUTSIDE RECORDS SUMMARY | 2024-12-15 12:07 | XMS_ITS | Clinical Summary ---
Author Organization [facility] Address [address] [facility] [address] [place] [phone] Phone Care Team Providers Care Bed Teacher Name Role Phone Bonnie Pearson NP Primary [...] Devices Not on file Insurance [facility] [address] [place] [address] [facility] [address] [place] [address] [facility] [address] [place] [address] [facility] [address] [place] [address] [facility] [address] [place] [facility] [address] [place] [address] Care Teams Bed Teacher Relationship Specialty Start Date End Date Bonnie Pearson NP [address] [place] [phone] PCP - General Nurse Practitioner 04/10/24 Additional Source Comments The information contained in this document represents components of the legal health record. It is not the complete legal health record.[facility]
== END 2024-12-15 12:04 | disposition home or self-care (01) ==
LOC: HO.HMGCX 12:03
PROVIDERS: Visit Provider Nurse Practitioner Family
DX: M54.2 Cervicalgia (principal)
CPT/HCPCS: 72052

== ENCOUNTER → 2024-12-15 12:06 | Outpatient (BNV) | payer OTHER, SELFPAY | PROVIDERS: Visit Provider Radiology Diagnostic Radiology | DX: M54.2 Cervicalgia (principal) | CPT/HCPCS: 72052 ==

== ENCOUNTER → 2024-12-16 12:43 | Outpatient (BNV) | payer OTHER, SELFPAY | PROVIDERS: Visit Provider Radiology Diagnostic Radiology | DX: R25.9 Unspecified abnormal involuntary movements (principal) | CPT/HCPCS: 70553 ==

== ENCOUNTER 2024-12-16 12:51 | Outpatient (REF) | payer OTHER, SELFPAY ==
--- NOTE | ~2024-12-16 | MR_ITS ---
EXAMINATION: MR BRAIN WITHOUT AND WITH CONTRAST CLINICAL INFORMATION: Abnormal involuntary movements. Migraines for several years COMPARISON: None available. TECHNIQUE: Multiplanar, multisequence MRI of the brain was obtained before and after the intravenous administration of 5 mL Gadavist. FINDINGS: There is no restricted diffusion seen to suspect any acute ischemic changes. No magnetic susceptibility artifact either to suggest an acute or chronic hemorrhagic products. The bernal to white matter junction is normal. No abnormal T2 FLAIR signal abnormality. The lateral ventricles are symmetrical in size and configuration without enlargement. There is normal flow-void signal seen in major cerebral vasculature no abnormality seen in the posterior fossa. Contrast images reveal no abnormal intra-axial or extra-axial enhancement. Prominent pituitary gland in expected finding in young female. No abnormality seen in the posterior fossa. The craniovertebral junction is normal. The paranasal sinuses and mastoid air cells are well-aerated and clear. Bilateral optic globes are symmetric and normal. Periorbital and intraorbital soft tissues are normal. MR/MR head/brain wo/w con IMPRESSION: No acute intracranial process seen. Essentially unremarkable MRI brain without and with contrast. Electronically signed by: Julio Jim MD 12/17/2024 07:36 AM EDT
--- OUTSIDE RECORDS SUMMARY | 2024-12-16 12:54 | XMS_ITS | Patient Health Record ---
Author Organization [facility] Address [address] [facility] [address] [place] [address] Care Team Providers Care Feed Mixer Helper Name Role Phone Demond Rooney Primary Care Provider Ronnie Rosario Unavailable [phone] Medications Medication SIG (Take, Route, Frequency, Duration) [...] Status W/U Status Risk Notes Problem Acne ([id number]) Other acne (706.1) Active confirmed Plan Of Treatment No Information Insurance Providers Payer Name Payer Address Payer Phone Subscriber Number Group Number Insured Name Patient Relationship to Insured Coverage Start Date Coverage End Date DO NOT USE BCRI BlUE CHIP-DO NOT USE USE #44 BCBS SHANE TRUJILLO [id number] Selam Winchester Child - Insured has Financial Responsibility [address] [address] [phone] [id number] Ayala Winchester Self - patient is the insured Medical (General) History Medical History History ICD Code acne
--- OUTSIDE RECORDS SUMMARY | 2024-12-16 12:55 | XMS_ITS | Clinical Summary ---
Author Organization [facility] Address [address] [employer] [facility] [address] [place] [address] Phone Care Team Providers Care Houseperson Name Role Phone Bonnie Pearson NP Primary [...] topic Medical Devices Not on file Insurance [facility] [address] [place] [address] [facility] [address] [place] [address] [facility] [address] [place] [address] [facility] [address] [place] [address] [facility] [address] [place], [place] [facility] [address] [place] [address] Care Teams Houseperson Relationship Specialty Start Date End Date Bonnie Pearson NP [address] [place] [phone] PCP - General Nurse Practitioner 04/10/24 Additional Source Comments The information contained in this document represents components of the legal health record. It is not the complete legal health record.[facility]
--- OUTSIDE RECORDS SUMMARY | 2024-12-16 12:55 | XMS_ITS | Patient Health Record ---
Author Organization [facility]. 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 [address] [place] [phone] 05/20/2024 Provider zMigration Plan Of Treatment No Information Insurance Providers Payer Name Payer Address Payer Phone Subscriber Number Group Number Insured Name Patient Relationship to Insured Coverage Start Date Coverage End Date [facility] Carlo/Marla Giordanore [address] [address] [place] [address] [id number] Ayala Winchester Self - patient is the insured Medical (General) History Medical History History ICD Code No significant past medical history PAP-11/2013-neg. Surgical History Surgery Date(Month/Year) Teeth extractions
== END 2024-12-16 12:52 | disposition home or self-care (01) ==
LOC: HO.MRI 12:51
PROVIDERS: Visit Provider Nurse Practitioner Family
DX: R25.9 Unspecified abnormal involuntary movements (principal); G43.009 Migraine without aura, not intractable, without status migrainosus
CPT/HCPCS: 70553; A9585

== ENCOUNTER 2024-12-19 14:51 | Outpatient (AMB) | payer OTHER, SELFPAY ==
[2024-12-19 14:53] VITALS: BP 98/56; PULSE 83; O2SAT 98; BMI 20.6
--- NOTE | 2024-12-19 14:53 | MHC.PC.OV ---
Vital Signs 12/19/24 14:53 Height 5 ft 3 in Weight 116 lb 6 oz BMI 20.6 BP 98/56 L Blood Pressure Location Lt brachial Position Sitting Pulse 83 Pulse Source Pulse Oximeter Pulse Oximetry (%) 98 Oxygen Delivery Method Room Air Intake Visit Reasons: cough still persistent after Walk in visit 12/11 Post Acute Care Nurse Practitioner Required: No Accompanied by: Self / Same As Patient Allergies No Known Allergies Allergy (Verified 12/19/24 15:06) Medication List - Last Reconciled 12/19/24 by Maryam Bynum PA-C albuterol sulfate 90 mcg/actuation 2 puffs inhalation Q6H PRN atogepant (Qulipta) 60 mg PO DAILY 30 days thiamine HCl (vitamin B1) 200 mg PO DAILY ubrogepant (Ubrelvy) 50 - 100 mg (0.5 - 1 x 100 mg) PO ONCE PRN 30 days Tobacco use date assessed: 10/23/24 Dental Screening Dental Screen Date: 12/19/24 Did you have a dental visit in the last 12 months?: No Did you have a dental problem in the last 6 months where you did not have access to dental care?: No Was dental information given to patient?: Patient has dentist HPI cough still persistent after Walk in visit 12/11 HPI Details 34-year-old female with past medical history of migraine, hypothyroid, fatty liver disease, and anxiety last seen 10/2024 coming in for acute problem. Presenting with a persistent cough. The cough has persisted for approximately one month, beginning at the end of November. The patient reports associated symptoms of dyspnea and fatigue. She visited urgent care and was prescribed prednisone, benzonatate, and an inhaler, which provided temporary relief. Despite treatment, the cough and fatigue persist, with symptoms fluctuating in severity. The patient experiences insomnia, which she attributes to the cough and associated discomfort. 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 Cognitive needs: No Hearing needs: No Vision needs: Yes (Glasses/Contacts) Questionnaire Thrive Questionnaire Date Thrive assessed: 07/23/24 I am a: Patient What is your living situation today?: I have a steady place to live Within the past 12 months, did the food you bought not last and you didn't have the money to get more?: Never true Within the past 12 months, did you worry whether your food would run out before you got money to buy more?: Never true Do you have trouble paying for medicines?: No Do you have trouble getting transportation to medical appointments?: No Do you have trouble paying your heating and electricity bill?: No Do you have trouble taking care of your child, family member or friend?: No Do you have trouble with day-to-day activities such as bathing, preparing meals, shopping, managing finances, etc.?: No Are you currently unemployed and looking for a job?: No Are you interested in more education?: Yes Please select the resources that you would like help with: None Currently or been in a relationship where the following occur: I choose not to answer THRIVE Score: 0 MARIO-7 AMB Questionnaire MARIO-7 Date MARIO - 7 assessed: 10/23/24 Source: Developed by Drs. Juice Skaggs, Vanessa Campos, Fransico Fitzgerald and colleagues, with an educational coco from [employer]. Review of Systems Const Denies body aches, Denies chills, Denies fever(s), Denies headache(s) and Denies poor appetite Eyes Reports no additional complaints ENT Denies dizziness and Denies headache(s) Card Denies chest pain, Denies syncope, Denies edema, Denies irregular heart rhythm, Denies lightheadedness and Denies dyspnea Resp Reports cough, Denies hemoptysis, Denies excessive phlegm production and Denies dyspnea GI Denies abdominal pain, Denies diarrhea, Denies nausea and Denies vomiting Reports no additional complaints Musc Reports no additional complaints and Denies abnormal gait Skin/Breast Reports system reviewed and no additional complaints, except as documented Neuro Denies abnormal gait, Denies dizziness, Denies syncope and Denies headache(s) Psych Reports no additional complaints Physical exam (Primary Care) Vital Signs: Last Vital Signs Pulse 83 12/19/24 14:53 BP 98/56 L 12/19/24 14:53 Pulse Ox 98 12/19/24 14:53 Oxygen Delivery Method Room Air 12/19/24 14:53 BMI result Body Mass Index 20.6 Tobacco/Smoking Status: Tobacco use Status Tobacco use date assessed 10/23/24 12/19/24 14:58 Patient Tobacco Use Status Never used Tobacco 12/19/24 14:58 e-Cigarette/Vaping Use Never Used 12/19/24 14:58 Thrive Assessment: Date of Thrive Assessment Date Thrive assessed 07/23/24 12/19/24 14:58 Currently or been in a relationship where the following occur: I choose not to answer Const General: cooperative, healthy appearing, comfortable and no acute distress Orientation/consciousness: patient oriented x3 HENMT Head: Yes normocephalic Ears: hearing grossly normal bilaterally General nose exam: Normal external nose present Eyes General: appearance normal, both eyes and all related structures Conjunctivae: conjunctivae normal Neck Neck: Yes full ROM and Yes no lymphadenopathy Resp Effort & Inspection: normal respiratory effort Auscultation: clear to auscultation bilaterally, no crackles, no rales, no rhonchi and no wheezes Cardio Rate: regular rate Rhythm: regular rhythm Skin General skin exam: no rashes or lesions noted Neuro General: patient oriented x3 Gait exam (Neuro): Normal gait present Extrem General: Yes normal to inspection, Yes full ROM and No edema Psych Affect: normal affect Attitude: cooperative Insight: Good insight present (Psych) Judgement: Good judgement present (Psych) Coding Level of Care Code Est Pt Level 3 (12670) Diagnoses Cough R05.9 Assessment & Plan Assessment & Plan (1) Cough: Code(s): R05.9 - Cough, unspecified Category: Medical Plan: A chest x-ray is recommended to rule out any underlying conditions such as pneumonia, given the persistence of symptoms. If the x-ray is negative, a prednisone taper over eight days will be prescribed to manage symptoms. Plan This note was constructed using voice recognition software. While every effort has been made to ensure accuracy and air compressor mechanic, still areas may have been included sometimes these areas may affect the content or meeting of the given symptoms. Total time spent caring for the patient today was 20 minutes. This includes time spent before the visit reviewing the chart, time spent during the visit, and time spent after the visit and documentation. Patient was informed and verbally consented to the use of an ambient scribe for clinic note documentation during this visit. Orders: Orders XR chest 2V Today R05.9 - Cough, unspecified
--- OUTSIDE RECORDS SUMMARY | 2024-12-19 18:26 | XMS_ITS | Patient Health Record ---
Author Organization [facility] Address [address] [facility] [address] [place] [address] Care Team Providers Care Turn Out Worker Name Role Phone Demond Rooney Primary Care Provider Ronnie Rosario Unavailable [phone] Medications Medication SIG (Take, Route, Frequency, Duration) [...] Status W/U Status Risk Notes Problem Acne ([id number]) Other acne (706.1) Active confirmed Plan Of Treatment No Information Insurance Providers Payer Name Payer Address Payer Phone Subscriber Number Group Number Insured Name Patient Relationship to Insured Coverage Start Date Coverage End Date DO NOT USE BCRI BlUE CHIP-DO NOT USE USE #44 BCBS SHANE TRUJILLO [id number] Selam Winchester Child - Insured has Financial Responsibility [address] [address] [phone] [id number] Ayala Winchester Self - patient is the insured Medical (General) History Medical History History ICD Code acne
--- OUTSIDE RECORDS SUMMARY | 2024-12-19 18:27 | XMS_ITS | Patient Health Record ---
Author Organization [facility] [employer]. 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 [address] [place] [address] [id number] 05/20/2024 Provider zMigration Plan Of Treatment No Information Insurance Providers Payer Name Payer Address Payer Phone Subscriber Number Group Number Insured Name Patient Relationship to Insured Coverage Start Date Coverage End Date [facility] Carlo/Marla Gomez [address] [address] [place] [address] [phone] [id number] Ayala Winchesetr Self - patient is the insured Medical (General) History Medical History History ICD Code No significant past medical history PAP-11/2013-neg. Surgical History Surgery Date(Month/Year) Teeth extractions
--- OUTSIDE RECORDS SUMMARY | 2024-12-19 18:27 | XMS_ITS | Clinical Summary ---
Author Organization [facility] Address [address] [facility] [address] [place] [phone] Phone Care Team Providers Care Central Supply Technician Supervisor Name Role Phone Bonnie Pearson NP Primary [...] topic Medical Devices Not on file Insurance [facility] [address] [place] [address] [facility] [address] [place] [address] [facility] [address] [place] [address] [facility] [address] [place] [address] [facility] [address] [place] [facility] [address] [place] [address] Care Teams Central Supply Technician Supervisor Relationship Specialty Start Date End Date Bonnie Pearson NP [address] [place] [phone] PCP - General Nurse Practitioner 04/10/24 Additional Source Comments The information contained in this document represents components of the legal health record. It is not the complete legal health record.[facility]
== END 2024-12-19 15:17 | disposition home or self-care (01) ==
LOC: HO.HMCH 14:51
DX: R05.9 Cough, unspecified (principal)

== ENCOUNTER 2024-12-19 14:51 | Outpatient (REF) | payer OTHER, SELFPAY ==
--- NOTE | ~2024-12-19 | XR_ITS ---
EXAMINATION: XR CHEST CLINICAL INFORMATION: R05.9 - Cough, unspecified COMPARISON: None available. TECHNIQUE: PA and lateral views. FINDINGS: Increased AP diameter of the thorax. No consolidation, pleural fissure pneumothorax. Cardiomediastinal silhouette size is small. Mild multilevel thoracic spondylosis. XR/XR chest 2V IMPRESSION: Hyperinflated lungs without acute airspace disease. Electronically signed by: Nathan Paz MD 12/19/2024 04:00 PM EDT
== END 2024-12-19 14:52 | disposition home or self-care (01) ==
LOC: HO.XRAY 14:51
DX: R05.3 Chronic cough (principal)
CPT/HCPCS: 71046

== ENCOUNTER → 2024-12-19 15:23 | Outpatient (BNV) | payer OTHER, SELFPAY | PROVIDERS: Visit Provider Radiology Diagnostic Radiology | DX: R05.3 Chronic cough (principal) | CPT/HCPCS: 71046 ==

== ENCOUNTER 2025-02-13 13:27 | Outpatient (AMB) | payer OTHER, SELFPAY ==
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
[2025-02-13 13:38] VITALS: BP 116/72; BMI 21.4
--- OUTSIDE RECORDS SUMMARY | 2025-02-13 16:19 | XMS_ITS | Patient Health Record ---
Author Organization [facility] Address [address] [facility] [address] [place] [address] Care Team Providers Care Promotions Associate Name Role Phone Demond Rooney Primary Care Provider Ronnie Rosario Unavailable [phone] Medications Medication SIG (Take, Route, Frequency, Duration) [...] Status W/U Status Risk Notes Problem Acne ([id number]) Other acne (706.1) Active confirmed Plan Of Treatment No Information Insurance Providers Payer Name Payer Address Payer Phone Subscriber Number Group Number Insured Name Patient Relationship to Insured Coverage Start Date Coverage End Date DO NOT USE BCRI BlUE CHIP-DO NOT USE USE #44 BCBS [place] TRUJILL[place] [phone] [id number] Selam Winchester Child - Insured has Financial Responsibility [address] [address] [phone] [id number] Ayala Winchester Self - patient is the insured Medical (General) History Medical History History ICD Code acne
--- OUTSIDE RECORDS SUMMARY | 2025-02-13 16:19 | XMS_ITS | Patient Health Record ---
Author Organization [facility] [email or web address]. 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 , going to [employer] in the fall for masters in speech path Graduated [employer] in spe ech path Problems No Known Problems Encounters Encounter Location Date Provider Diagnosis [facility] [address] [place] [address] [id number] 05/20/2024 Provider zMigration Plan Of Treatment No Information Insurance Providers Payer Name Payer Address Payer Phone Subscriber Number Group Number Insured Name Patient Relationship to Insured Coverage Start Date Coverage End Date [facility] Carlo/Marla Gomez [address] [address] [place] [address] [id number] Ayala Winchester Self - patient is the insured Medical (General) History Medical History History ICD Code No significant past medical history PAP-11/2013-neg. Surgical History Surgery Date(Month/Year) Teeth extractions
--- OUTSIDE RECORDS SUMMARY | 2025-02-13 16:19 | XMS_ITS | Clinical Summary ---
Author Organization [facility] Address [address] [facility] [address] [place] [phone] Phone Care Team Providers Care Spa Manager/Esthetician Name Role Phone Bonnie Pearson NP Primary [...] 2009 INFLUENZA VACCINE (#1) 2024 COVID-19 VACCINE (2024-2 6 season) 2024 SMOKING STATUS SCREENING (On ce [...] topic Medical Devices Not on file Insurance [facility] [address] [place] [address] [facility] [address] [place] [address] [facility] [address] [place] [address] [facility] [address] [place] [address] [facility] [address] [place] [facility] [address] [place] [address] Care Teams Spa Manager/Esthetician Relationship Specialty Start Date End Date Bonnie Pearson NP [address] [place] [phone] PCP - General Nurse Practitioner 04/10/24 Additional Source Comments The information contained in this document represents components of the legal health record. It is not the complete legal health record.[facility]
== END 2025-02-13 15:51 | disposition home or self-care (01) ==
LOC: HO.HWSM 13:27
PROVIDERS: Visit Provider Advanced Practice Midwife
DX: Z01.419 Encounter for gynecological examination (general) (routine) without abnormal findings (principal); G43.009 Migraine without aura, not intractable, without status migrainosus
CPT/HCPCS: 99385; 99459